=== PATIENT | male | born 1945 | race Caucasian/White ===

== ENCOUNTER 2016-10-14 14:45 | Emergency (ER) | payer OTHER ==
[~2016-10-14] VITALS: Ht 188 cm; Wt 107.5 kg
[~2016-10-14 14:45] MED LIST: ACTOS30 MG PO; ALPRAZOLAM0.5 MG PO; AMARYL2 MG PO; AMLODIPINE BESY10 MG PO; ASCOMP WITH CO1 EACH PO; ASPIR-LOW81 M1 PO; ASPIRIN81 M1 PO; BENTYL20 MG PO; CENTRUM SILVER1 EAC3 PO; CENTRUM SILVER1 EACH PO; CETIRIZINE HCL10 M2 PO; CILOSTAZOL100 MG PO; DILAUDID4 MG PO; ENDOCET 10-3251 EACH PO; FISH OIL SOFTG1 EACH PO; FLEXERIL10 MG PO; GABAPENTIN300 MG PO; GABAPENTIN400 MG PO; GLIMEPIRIDE2 MG PO; HYDROCHLOROTHIA25 MG PO; IMODIUM2 MG PO; JANUVIA100 MG; JANUVIA100 MG PO; LIPITOR20 MG PO; LISINOPRIL30 MG PO; MEVACOR40 MG PO; MIRAPEX0.25 MG PO; MIRTAZAPINE15 MG PO; NAPROXEN375 M2 PO; NEURONTIN300 MG PO; NEXIUM10 MG PO; NEXIUM40 MG PO; NIACIN 500 MG1 EACH PO; NORVASC10 M1 PO; OXYCODONE-APAP1 EACH PO; PANTOPRAZOLE SO40 MG PO; PERCOCET 5/31 TABLET PO; PLETAL100 M1 PO; PRAMIPEXOLE DI0.5 MG PO; PRINZIDE 20-251 EACH PO; RANITIDINE HCL150 MG PO; ROPINIROLE HCL0.5 MG PO; TEGRETOL200 MG PO; TENORMIN100 MG PO; TOPAMAX25 MG PO; TOPIRAMATE25 MG PO; TRAMADOL HCL50 MG PO; XANAX1 MG PO; XOPENEX HF200 INHALA IH; ZESTORETIC 20-1 EAC1 NG
[2016-10-14] MEDS ORDERED: unable to recall (15:12)
[2016-10-14] MEDS ORDERED: NAPROSYN500 MG PO (17:29)
[2016-10-14 17:37] VITALS: BP 120/62
== END 2016-10-14 17:43 | disposition home or self-care (01) ==
LOC: EME 14:45
DX: S80.01XA Contusion of right knee, initial encounter (principal); M79.601 Pain in right arm; M54.2 Cervicalgia; W01.0XXA Fall on same level from slipping, tripping and stumbling without subsequent striking against object, initial encounter; I10 Essential (primary) hypertension; E78.5 Hyperlipidemia, unspecified; E11.9 Type 2 diabetes mellitus without complications; Z79.84 Long term (current) use of oral hypoglycemic drugs; F17.200 Nicotine dependence, unspecified, uncomplicated
CPT/HCPCS: 70450; 72125; 73080; 73564; 99281; 99284

== ENCOUNTER 2016-12-09 14:14 | Emergency (ER) | payer OTHER ==
[~2016-12-09] VITALS: Ht 188 cm; Wt 106.2 kg
[~2016-12-09 14:14] MED LIST changes: +NAPROSYN500 MG PO; +unable to recall
[2016-12-09 15:33] VITALS: BP 121/73
== END 2016-12-09 15:34 | disposition home or self-care (01) ==
LOC: EME 14:14 → RME 14:14
DX: S49.91XA Unspecified injury of right shoulder and upper arm, initial encounter (principal); W19.XXXA Unspecified fall, initial encounter; G89.29 Other chronic pain; M54.9 Dorsalgia, unspecified; Z79.891 Long term (current) use of opiate analgesic; I10 Essential (primary) hypertension; E11.9 Type 2 diabetes mellitus without complications; Z79.84 Long term (current) use of oral hypoglycemic drugs; Z72.0 Tobacco use
CPT/HCPCS: 73030; 99281; 99283

== ENCOUNTER 2017-08-08 16:00 | Emergency (ER) | payer OTHER ==
[~2017-08-08] VITALS: Ht 188 cm; Wt 105.7 kg
[2017-08-08 17:53] LABS: APPEARANCE CLEAR ((CLEAR)); BILIRUBIN NEGATIVE; BLOOD SMALL; COLOR YELLOW ((YELLOW)); GLUCOSE (STRIP) NEGATIVE; KETONES NEGATIVE; LEUKOCYTES NEGATIVE; NITRITE NEGATIVE; PROTEIN (STRIP) NEGATIVE; SPECIFIC GRAVITY 1.015 (1.000-1.030)
[2017-08-08 17:58] LABS: BACTERIA RARE /HPF; CALCIUM OXALATE CRYSTALS 1+ /HPF; EPITHELIAL CELLS RARE /HPF; MUCUS NONE SEEN /LPF; RED BLOOD CELLS 0-5 /HPF (0-5); UCUL ADDED? NO; WHITE BLOOD CELLS 0-5 /HPF (0-5)
[2017-08-08 18:18] LABS: HEMATOCRIT 40.2 % (38.0-50.0); HEMOGLOBIN 14.1 G/DL (12.5-16.6); MCHC 35.1 G/DL (30.0-36.0); MCV 91.4 FL (86-99); PLATELET COUNT 174 K/uL (156-360); RBC DIS.WIDTH-SD 43.4 % (39-53); WHITE BLOOD COUNT 15.8 K/uL (4.1-10.2)
[2017-08-08 18:40] LABS: MONOSPOT (MONONUCLEOSIS SEROL) NEGATIVE
[2017-08-08 18:56] LABS: CHLORIDE 112 mEq/L (99-109); POTASSIUM 3.9 mEq/L (3.7-5.4); SODIUM 141 mEq/L (136-147)
[2017-08-08 18:57] LABS: GLUCOSE 102 mg/dL (70-99)
[2017-08-08 19:01] LABS: CREATININE 0.9 mg/dL (0.6-1.3); GFR ESTIMATE (CALCULATED) > 59 mL/min/ (58.99-99999)
[2017-08-08 19:02] LABS: UREA NITROGEN (BUN) 13 mg/dL (9-23)
[2017-08-08] MEDS ORDERED: NAPROSYN500 MG PO (19:11)
[2017-08-08 19:29] VITALS: BP 113/58
== END 2017-08-08 19:30 | disposition home or self-care (01) ==
LOC: EME 16:00
PROVIDERS: Nurse Practitioner Family
DX: B34.9 Viral infection, unspecified (principal); M79.604 Pain in right leg; M79.605 Pain in left leg; J45.909 Unspecified asthma, uncomplicated; E11.9 Type 2 diabetes mellitus without complications; I10 Essential (primary) hypertension; K22.2 Esophageal obstruction; F32.9 Major depressive disorder, single episode, unspecified; F41.9 Anxiety disorder, unspecified; F17.200 Nicotine dependence, unspecified, uncomplicated; Z71.6 Tobacco abuse counseling; Z79.84 Long term (current) use of oral hypoglycemic drugs; Z79.891 Long term (current) use of opiate analgesic; Z79.51 Long term (current) use of inhaled steroids; Z88.6 Allergy status to analgesic agent; Z88.5 Allergy status to narcotic agent
CPT/HCPCS: 71046; 80048; 81003; 85027; 86308; 87651 90; 93005; 99281; 99283